=== PATIENT | female | born 1980 | race Caucasian/White ===

== ENCOUNTER 2016-07-20 15:08 | Emergency (ER) | payer MEDICAID | END 2016-07-20 17:13 | disposition home or self-care (01) | LOC: ER 15:08 | DX: S46.212A Strain of muscle, fascia and tendon of other parts of biceps, left arm, initial encounter (principal); X50.0XXA Overexertion from strenuous movement or load, initial encounter; Y92.59 Other trade areas as the place of occurrence of the external cause ==